=== PATIENT | male | born 1945 | race Caucasian/White ===

== ENCOUNTER 2024-07-04 13:25 | Emergency (ER) | payer OTHER ==
--- NOTE | 2024-07-04 14:38 | RAD REPORT ---
EXAMINATION: Humerus Right Wo Con CLINICAL INDICATION: Male, 78 years old.possible tendon rupture TECHNIQUE: CT above extremity was performed without contrast. Reformats were performed. One or more o f the following dose reduction techniques were used: Automated exposure control, adjustment of the mA and/or kV according to patient size, and/or iterative reconstruction. Unless otherwise specified, incidental findings do not require dedicated imaging follow-up. [id number]. COMPARISON: No prior exam. FINDINGS: No right humerus fractures identified. Degenerative changes present at the right AC joint and to less er extent glenohumeral joint. There is intramuscular hematoma in the mid body of the right biceps muscle. The tendons are not well assessed on CT. IMPRESSION: Intramuscular hematoma in the body of the right mid biceps muscle. This appears to primarily affect t he muscle body without findings to indicate tendinous disruption. MRI could further evaluate, however. No acute fracture seen.
--- NOTE | 2024-07-04 15:00 | EDPHYS ---
Physician Documentation [facility] Name: Osbaldo Gould Age: 78 yrs Sex: Male : 1945 Arrival Date: 07/04/2024 Time: 13:25 Bed DX2 Private MD: ED Physician Van Collier HPI: 07/04 13:49 This 78 yrs old Male presents to ER via Ambulatory with complaints of arm bruising rn (heard a pop). 13:49 The patient or guardian complains of decreased range of motion, injury, pain. The rn complaints affect the right bicep. Onset: The symptoms/episode began/occurred 5 day(s) ago. Modifying factors: The symptoms are alleviated by nothing. the symptoms are aggravated by movement, lifting weight, bending arm. Severity of symptoms: At their worst the symptoms were moderate, in the emergency department the symptoms have improved. The patient has not experienced similar symptoms in the past. Patient reports was doing something with the right arm last week, heard a pop and felt pain to right bicep region of arm. Began to bruise and swell. Pain improved with heating pad and rest. Now entire arm is bruised and spreading towards hand. Still having pain in biceps region. Does not take blood thinners. Historical: - Allergies: 13:36 No Known Allergies; ap3 - Home Meds: 13:36 Allopurinol Oral [Active]; levothyroxine oral [Active]; ap3 - PMHx: 13:36 None; ap3 - Immunization history:: Client reports having NOT received the Covid vaccine. Flu vaccine is not up to date. - Infectious Disease History:: Denies. - Social history:: Smoking status: Patient denies any tobacco usage or history of. - Family history:: not pertinent. - Hospitalizations: : No recent hospitalization is reported. ROS: 13:49 Constitutional: Negative for fever, chills, and weight loss, Neck: Negative for injury, rn pain, and swelling, Cardiovascular: Negative for chest pain, palpitations, and edema, Respiratory: Negative for shortness of breath, cough, wheezing, and pleuritic chest pain, MS/Extremity: Positive for right bicep pain and swelling with ecchymosis Skin: Positive for bruising Neuro: Negative for weakness, numbness, tingling Exam: 13:49 Constitutional: This is a well developed, well nourished patient who is awake, alert, rn and in no acute distress. Cardiovascular: Regular rate and rhythm. No pulse deficits. MS/ Extremity: Pulses equal, no cyanosis. Neurovascular intact. Mild tenderness over the lateral bicep region with ecchymosis that extends to the right wrist but no tenderness elsewhere. No bony tenderness. Vital Signs: 13:33 BP 145 / 82; Pulse 77; Resp 17; Temp 98; Pulse Ox 100% ; Weight 99.79 kg; Height 5 ft. ap3 11 in. ; Pain 3/10; 13:33 Body Mass Index 30.68 (99.79 kg, 180.34 cm) ap3 13:33 Pain Scale: Adult ap3 MDM: 13:31 Medical Screening Exam initiated rn 14:58 Differential diagnosis: Bicep muscle rupture, bicep tendon rupture. Data reviewed: rn vital signs, nurses notes, radiologic studies, CT scan, and as a result, I will discharge patient. Counseling: I had a detailed discussion with the patient and/or guardian regarding the historical points, exam findings, and any diagnostic results supporting the discharge/admit diagnosis, radiology results, the need for outpatient follow up, to return to the emergency department if symptoms worsen or persist or if there are any questions or concerns that arise at home. Special discussion: I discussed with the patient/guardian in detail that at this point there is no indication for admission to the hospital. It is understood, however, that if the symptoms persist or worsen the patient needs to return immediately for re-evaluation. Based on the history and exam findings, there is no indication for further emergent testing or inpatient evaluation. I discussed with the patient/guardian the need to see the orthopedic surgeon for further evaluation of the symptoms. ED course: CT shows right bicep muscle tear, not completely, still has good range of motion. Overall improving and [address] in sling and discharge with idxb-rch-asgueor anti-inflammatories as well as heat with Ortho follow-up for MRI and further recommendations.. 07/04 13:49 Order name: Humerus Right Wo Con; Complete Time: 14:41 EDMS 07/04 13:44 Order name: Sling; Complete Time: 14:53 rn Administered Medications: No medications were administered Disposition Summary: 07/04/24 14:59 Discharge Ordered Notes: Location: Home rn Problem: new rn Symptoms: have improved rn Condition: Stable rn Diagnosis - Acute right lateral bicep muscle tear and injury rn Followup: rn - With: Mihai Cardenas MD - When: 7 - 10 days - Reason: Recheck today's complaints, Re-evaluation by your physician Discharge Instructions: - Discharge Summary Sheet rn - How to Use a Sling rn Forms: - Medication Reconciliation Form rn - Antibiotic ornament maker hand - Prescription Opioid Use rn - Patient Portal Instructions rn - Leadership Thank You Letter rn Signatures: Dispatcher [employer] EDCT Van Collier MD MD rn Prokisch, Amanda, RN RN ap3 Corrections: (The following items were deleted from the chart) 13:49 13:46 CT RIGHT HUMERUS WO CONTRAST ordered. [facility] 13:50 13:49 Patient reports was doing something with the right arm last week, heard a pop and rn felt pain to right bicep region of arm. Began to bruise and swell. Pain improved with heating pad and rest. Now entire arm is bruised and spreading towards hand. Still having pain in biceps region.. rn
--- NOTE | 2024-07-04 15:00 | ER ---
Nurse's Notes [facility] Name: Osbaldo Gould Age: 78 yrs Sex: Male : 1945 Arrival Date: 07/04/2024 Time: 13:25 Bed DX2 Private MD: Diagnosis: Acute right lateral bicep muscle tear and injury Presentation: 07/04 13:33 Chief complaint: Patient states: he had moved his right arm a certain way, and felt a ap3 "pop" last Thursday06/29/24. patient reports the pain didn't start until 06/30/24, but is better with a heating pad. patient states the bruising began the morning of Thursday07/01/24. Coronavirus screen: At this time, the client does not indicate any symptoms associated with coronavirus-19. Ebola Screen: No symptoms or risks identified at this time. Initial Sepsis Screen: Does the patient meet any 2 criteria? No. Patient's initial sepsis screen is negative. Does the patient have a suspected source of infection? No. Patient's initial sepsis screen is negative. Risk Assessment: Do you want to hurt yourself or someone else? Patient reports no desire to harm self or others. Onset of symptoms was June 29, 2024. 13:33 Method Of Arrival: Ambulatory ap3 13:39 Acuity: TRISTA 3 ap3 Triage Assessment: 13:38 General: Appears in no apparent distress. Behavior is calm, cooperative, appropriate ap3 for age. Pain: Complains of pain in right arm Pain currently is 3 out of 10 on a pain scale. Pain began 06/29/24 Alleviated by heat application. Neuro: Level of Consciousness is awake, alert, obeys commands, Oriented to person, place, time, situation. Cardiovascular: Patient's skin is warm and dry. Respiratory: Airway is patent Respiratory effort is even, unlabored, Respiratory pattern is regular, symmetrical. Derm: Bruising that is dark purple, on right arm. Historical: - Allergies: 13:36 No Known Allergies; ap3 - Home Meds: 13:36 Allopurinol Oral [Active]; levothyroxine oral [Active]; ap3 - PMHx: 13:36 None; ap3 - Immunization history:: Client reports having NOT received the Covid vaccine. Flu vaccine is not up to date. - Infectious Disease History:: Denies. - Social history:: Smoking status: Patient denies any tobacco usage or history of. - Family history:: not pertinent. - Hospitalizations: : No recent hospitalization is reported. Screenin:39 [facility] ED Fall Risk Assessment (Adult) History of falling in the last 3 months, ap3 including since admission No falls in past 3 months (0 pts) Confusion or Disorientation No (0 pts) Intoxicated or Sedated No (0 pts) Impaired Gait No (0 pts) Mobility Assist Device Used No (0 pt) Altered Elimination No (0 pt) Score/Fall Risk Level 0 - 2 = Low Risk Oriented to surroundings, Maintained a safe environment, Educated pt \\T\\ family on fall prevention, incl call for assistance when getting out of bed, Assessed \\T\\ reinforced patient's understanding of fall precautions, Hourly rounding (assess needs \\T\\ fall precautionary measures) done, Used ambulatory aids as needed (educated on \\T\\ assisted with), Used gait belt as appropriate. Abuse screen: Denies threats or abuse. Nutritional screening: No deficits noted. Tuberculosis screening: No symptoms or risk factors identified. Assessment: 15:10 General: Appears in no apparent distress. comfortable, Behavior is calm, cooperative. ss Pain: Complains of pain in right bicep Pain currently is 3 out of 10 on a pain scale. Neuro: Level of Consciousness is awake, alert, obeys commands, Oriented to person, place, time, situation. Respiratory: Airway is patent Respiratory effort is even, unlabored, Respiratory pattern is regular, symmetrical. Derm: Skin is pink, warm \\T\\ dry. normal, Bruising that is dark purple, green, on right arm. Vital Signs: 13:33 BP 145 / 82; Pulse 77; Resp 17; Temp 98; Pulse Ox 100% ; Weight 99.79 kg; Height 5 ft. ap3 11 in. ; Pain 3/10; 13:33 Body Mass Index 30.68 (99.79 kg, 180.34 cm) ap3 13:33 Pain Scale: Adult ap3 ED Course: 13:30 Patient arrived in ED. ra3 13:31 Van Collier MD is Attending Physician. rn 13:36 Triage completed. ap3 13:39 Arm band placed on left wrist. ap3 14:01 Humerus Right Wo Con In Process Unspecified. EDMS 14:53 Patient has correct armband on for positive identification. Bed in low position. Call ss light in reach. Warm blanket given. 14:53 No provider procedures requiring assistance completed. Patient did not have IV access ss during this emergency room visit. Sling applied to right arm. 14:59 Mihai Cardenas MD is Referral Physician. rn 15:09 Charla Gonzalez, RN is Primary Nurse. ss Administered Medications: No medications were administered Medication: 15: VIS not applicable for this client. ss Outcome: 14:59 Discharge ordered by . rn 15: Discharged to home ambulatory, ss 15:09 Discharge instructions given to patient, Instructed on discharge instructions, follow up and referral plans. Demonstrated understanding of instructions, follow-up care, 15:11 Patient left the ED. ss Signatures: Dispatcher [employer] EDCO Van Collier MD MD rn Blanchard, Shelby, RN RN ss Elba Jeronimo RN RN ap3 Sally Avina ra3 Corrections: (The following items were deleted from the chart) 13:39 13:33 Acuity: TRISTA 4 ap3 ap3
[2024-07-04 18:15] VITALS: BP 145/82; TEMP 98; O2SAT 100
== END 2024-07-04 15:11 | disposition home or self-care (01) ==
LOC: ER 13:25
DX: S46.211A Strain of muscle, fascia and tendon of other parts of biceps, right arm, initial encounter (principal)
CPT/HCPCS: 73200; 99283